=== PATIENT | female | born 1935 | race Two or more races ===

== ENCOUNTER 2020-12-11 09:59 | Inpatient (IN) | payer OTHER ==
[~2020-12-11] VITALS: Ht 162.6 cm; Wt 42.8 kg
[2020-12-11 10:46] LABS: Basophils # (auto) 0.1 10 ^3/uL (0-0.2); Eosinophils # (auto) 0.2 10 ^3/uL (0-0.8); Eosinophils % (auto) 4.1 % (0.0-7.0); Hematocrit 36.5 % (36.0-46.0); Hemoglobin 12.5 g/dL (12.2-16.2); Lymphocytes # (auto) 1.3 10 ^3/uL (0.4-5.4); Lymphocytes % (auto) 27.3 % (10.0-50.0); Mean Corpuscular Hemoglobin 30.6 pg (28.0-32.0); Mean Corpuscular Hgb Conc. 34.2 g/dL (32.0-36.0); Mean Corpuscular Volume 89.5 fL (80.0-100.0); Monocytes # (auto) 0.3 10 ^3/uL (0-1.3); Monocytes % (auto) 5.5 % (0.0-12.0); Neutrophils % (auto) 62.1 % (37.0-80.0); Nucleated Red Blood Cells % 0.1 %; Red Blood Cells 4.08 10^6/uL (4.0-5.20); Red Cell Distribution Width 16.3 % (11.8-14.3); White Blood Cell 4.9 10^3/uL (4.4-10.8)
[2020-12-11] MEDS ORDERED: ONDANSETRON HCL 4 MG/2 ML VIAL IV ONE (11:00)
[2020-12-11] MEDS ORDERED: MORPHINE SULFATE 4 MG/ML SYR/VIAL IV ONE (11:00)
[2020-12-11 11:10] LABS: INR 1.17 (0.9-1.15); Partial Thromboplastin Time 26.3 sec (23.0-31.2)
[2020-12-11 11:12] LABS: Albumin 3.2 g/dL (3.4-5.0); Anion Gap 8 (5-15); Blood Urea Nitrogen 14 mg/dL (7-18); Calcium 8.6 mg/dL (8.5-10.1); Carbon Dioxide 25 mmol/L (21-32); Chloride 107 mmol/L (98-107); Glucose 119 mg/dL (74-106); Potassium 3.6 mmol/L (3.5-5.1); Sodium 140 mmol/L (136-145)
[2020-12-11 11:15] LABS: BUN/Creatinine Ratio 93.3; GFR African American 602 mL/min
[2020-12-11 11:16] LABS: Alanine Aminotransferase 30 U/L (13-56); Alkaline Phosphatase 78 U/L (45-117); Aspartate Aminotransferase 40 U/L (15-37); Bilirubin, Total 0.6 mg/dL (0.2-1.0); GFR Non-African American 498 mL/min; Total Protein 6.8 g/dL (6.4-8.2)
[2020-12-11 12:11] LABS: Urine Bacteria NONE SEEN /hpf (None Seen); Urine Blood Negative /uL (Negative); Urine Hyaline Cast FEW /lpf (0 - 2); Urine Mucus FEW (None Seen); Urine Specific Gravity 1.011 (1.001-1.035); Urine WBC 1 /hpf (0 - 5)
[2020-12-11] MEDS ORDERED: ACETAMINOPHEN 500 MG TAB PO PRN (12:30)
[2020-12-11] MEDS ORDERED: HYDROcodone-ACET 5/325MG TAB PO PRN (12:30)
[2020-12-11] MEDS ORDERED: ONDANSETRON HCL 4 MG/2 ML VIAL IV PRN (12:30)
[2020-12-11] MEDS ORDERED: MORPHINE SULFATE INJECTION 2 MG/ML SYRG IV PRN ×2 (12:30)
[2020-12-11] MEDS ORDERED: NITROGLYCERIN 0.4 MG SL TAB SL PRN (12:30)
[2020-12-11] MEDS ORDERED: DOCUSATE SOD 100 MG CAP PO PRN (12:30)
[2020-12-11] MEDS ORDERED: MORPHINE SULFATE INJECTION 2 MG/ML SYRG IV ONE (15:45)
[2020-12-11] MEDS: ONDANSETRON HCL 4 MG/2 ML VIAL IV PRN (19:56)
[2020-12-11 21:35] VITALS: BP 156/97
[2020-12-12] VITALS (13 sets, daily range): BP systolic 107–152; BP diastolic 50–80
[2020-12-12] MEDS: MORPHINE SULFATE INJECTION 2 MG/ML SYRG IV PRN ×2 (05:21→09:24)
[2020-12-12] MEDS ORDERED: VANCOMYCIN HCL 1000 MG VL ONE (09:50)
[2020-12-12] MEDS ORDERED: TRANEXAMIC ACID 20 ML ONE (09:51)
[2020-12-12] MEDS ORDERED: EPINEPHrine HCL 1 MG/1 ML AMP ONE (09:52)
[2020-12-12] MEDS ORDERED: FAMOTIDINE 20 MG TAB PO SCH (10:00)
[2020-12-12] MEDS ORDERED: MORPHINE SULF PF 2 MG/2 ML SYRG ONE (10:29)
[2020-12-12] MEDS ORDERED: CLINDAMYCIN 600MG IV 50 ML IV ONE (10:57)
[2020-12-12] MEDS ORDERED: PHENYLEPHRINE HCL 10 MG/ML VL IV ONE (11:23)
[2020-12-12] MEDS ORDERED: fentaNYL CITRATE 100 MCG/2 ML VL ONE (11:32)
[2020-12-12] MEDS ORDERED: MIDAZOLAM HCL 2MG/2ML 2ml VIAL (1mg/ml) ONE (11:36)
[2020-12-12] MEDS ORDERED: ONDANSETRON HCL 4 MG/2 ML VIAL ONE ×2 (13:18→14:24)
[2020-12-12] MEDS ORDERED: LIDOCAINE 2% (LOCAL ANESTH.) PF 5ml SDV ONE (13:18)
[2020-12-12] MEDS ORDERED: PROPOFOL 10 MG/ML 20 ML IV ONE (13:41)
[2020-12-12] MEDS ORDERED: HYDROcodone-ACET 5/325MG TAB PO PRN (13:45)
[2020-12-12] MEDS ORDERED: ONDANSETRON HCL 4 MG/2 ML VIAL IV PRN (13:45)
[2020-12-12] MEDS ORDERED: HYDROmorphone HCL 2 MG/ML VL IV PRN (13:45)
[2020-12-12] MEDS ORDERED: NALBUPHINE HCL 10 MG/1ml INJECTION SUBCUT ONE (13:45)
[2020-12-12] MEDS ORDERED: NALOXONE HCL 0.4 MG/ML VIAL IV PRN (13:45)
[2020-12-12] MEDS ORDERED: diphenhdrAMINE HCL 50 MG/1 ML VL IV PRN (13:45)
[2020-12-12] MEDS ORDERED: DexAMETHasone SOD PHOS 10MG/1ML VIAL INJ IV PRN (13:45)
[2020-12-12] MEDS: CLINDAMYCIN 600MG IV 50 ML IV SCH ×2 (17:16→21:40)
[2020-12-12] MEDS: LACTATED RINGER'S 1,000 ML IV SCH (17:17)
[2020-12-12] MEDS: METOPROLOL TARTRATE 25 MG TAB PO SCH (21:41)
[2020-12-13] VITALS (18 sets, daily range): BP systolic 93–142; BP diastolic 44–80
[2020-12-13] MEDS: HYDROcodone-ACET 5/325MG TAB PO PRN ×4 (00:48→23:39)
[2020-12-13 06:03] LABS: Basophils # (auto) 0 10 ^3/uL (0-0.2); Basophils % (auto) 0.3 % (0.0-2.0); Eosinophils # (auto) 0 10 ^3/uL (0-0.8); Eosinophils % (auto) 0.2 % (0.0-7.0); Hematocrit 27.6 % (36.0-46.0); Hemoglobin 9.6 g/dL (12.2-16.2); Lymphocytes # (auto) 1.1 10 ^3/uL (0.4-5.4); Lymphocytes % (auto) 13.8 % (10.0-50.0); Mean Corpuscular Hemoglobin 31.8 pg (28.0-32.0); Mean Corpuscular Hgb Conc. 34.8 g/dL (32.0-36.0); Mean Corpuscular Volume 91.6 fL (80.0-100.0); Monocytes # (auto) 0.6 10 ^3/uL (0-1.3); Monocytes % (auto) 7.5 % (0.0-12.0); Neutrophils # (auto) 6.5 10 ^3/uL (1.6-8.6); Neutrophils % (auto) 78.2 % (37.0-80.0); Nucleated Red Blood Cells % 0.1 %; Red Blood Cells 3.01 10^6/uL (4.0-5.20); Red Cell Distribution Width 16.5 % (11.8-14.3); White Blood Cell 8.3 10^3/uL (4.4-10.8)
[2020-12-13 06:26] LABS: BUN/Creatinine Ratio 133.3; Calcium 8.2 mg/dL (8.5-10.1); Potassium 3.9 mmol/L (3.5-5.1)
[2020-12-13] MEDS: APIXABAN 2.5 MG TAB PO SCH ×2 (09:10→22:24)
[2020-12-13] MEDS: FAMOTIDINE 20 MG TAB PO SCH (09:10)
[2020-12-13] MEDS: LACTATED RINGER'S 1,000 ML IV SCH ×3 (09:45→21:19)
[2020-12-13] MEDS ORDERED: ENOXAPARIN SOD 30 MG/0.3 ML SYRINGE SC SCH (10:00)
[2020-12-13] MEDS: METOPROLOL TARTRATE 25 MG TAB PO SCH ×2 (10:00→22:24)
[2020-12-13] MEDS: ONDANSETRON HCL 4 MG/2 ML VIAL IV PRN (10:56)
[2020-12-13] MEDS: DOCUSATE SOD 100 MG CAP PO SCH ×2 (15:26→22:00)
[2020-12-14] VITALS (7 sets, daily range): BP systolic 110–138; BP diastolic 37–70
[2020-12-14 05:55] LABS: Basophils # (auto) 0 10 ^3/uL (0-0.2); Basophils % (auto) 0.4 % (0.0-2.0); Eosinophils # (auto) 0.1 10 ^3/uL (0-0.8); Eosinophils % (auto) 0.7 % (0.0-7.0); Hematocrit 24.9 % (36.0-46.0); Hemoglobin 8.8 g/dL (12.2-16.2); Lymphocytes % (auto) 13.4 % (10.0-50.0); Mean Corpuscular Hemoglobin 31.7 pg (28.0-32.0); Mean Corpuscular Hgb Conc. 35.5 g/dL (32.0-36.0); Mean Corpuscular Volume 89.3 fL (80.0-100.0); Monocytes # (auto) 0.5 10 ^3/uL (0-1.3); Monocytes % (auto) 6.5 % (0.0-12.0); Neutrophils # (auto) 5.7 10 ^3/uL (1.6-8.6); Red Blood Cells 2.79 10^6/uL (4.0-5.20); White Blood Cell 7.3 10^3/uL (4.4-10.8)
[2020-12-14 06:13] LABS: BUN/Creatinine Ratio 126.3; Calcium 8.7 mg/dL (8.5-10.1); Potassium 4.3 mmol/L (3.5-5.1)
[2020-12-14] MEDS: FAMOTIDINE 20 MG TAB PO SCH (09:05)
[2020-12-14] MEDS: APIXABAN 2.5 MG TAB PO SCH ×2 (09:05→21:57)
[2020-12-14] MEDS: DOCUSATE SOD 100 MG CAP PO SCH ×2 (09:05→22:00)
[2020-12-14] MEDS: HYDROcodone-ACET 5/325MG TAB PO PRN ×3 (09:05→19:44)
[2020-12-14] MEDS: METOPROLOL TARTRATE 25 MG TAB PO SCH ×2 (09:07→22:01)
[2020-12-14] MEDS ORDERED: LACTULOSE 20Gm/30ML SOLN PO ONE (09:30)
[2020-12-14] MEDS ORDERED: LACTULOSE 20Gm/30ML SOLN PO PRN (09:30)
[2020-12-15 05:14] VITALS: BP 125/70
[2020-12-15 05:35] LABS: Basophils # (auto) 0 10 ^3/uL (0-0.2); Basophils % (auto) 0.3 % (0.0-2.0); Eosinophils # (auto) 0.2 10 ^3/uL (0-0.8); Eosinophils % (auto) 2.7 % (0.0-7.0); Hematocrit 27.7 % (36.0-46.0); Hemoglobin 9.9 g/dL (12.2-16.2); Lymphocytes # (auto) 1.5 10 ^3/uL (0.4-5.4); Lymphocytes % (auto) 19.7 % (10.0-50.0); Mean Corpuscular Hemoglobin 31.7 pg (28.0-32.0); Mean Corpuscular Hgb Conc. 35.7 g/dL (32.0-36.0); Mean Corpuscular Volume 88.7 fL (80.0-100.0); Monocytes # (auto) 0.3 10 ^3/uL (0-1.3); Monocytes % (auto) 4.3 % (0.0-12.0); Neutrophils # (auto) 5.4 10 ^3/uL (1.6-8.6); Nucleated Red Blood Cells % 0.1 %; Red Blood Cells 3.12 10^6/uL (4.0-5.20); Red Cell Distribution Width 16.2 % (11.8-14.3); White Blood Cell 7.4 10^3/uL (4.4-10.8)
[2020-12-15 05:52] LABS: Calcium 8.7 mg/dL (8.5-10.1); Potassium 3.7 mmol/L (3.5-5.1)
[2020-12-15 05:55] LABS: BUN/Creatinine Ratio 122.2
[2020-12-15 08:00] VITALS: BP 149/75
[2020-12-15] MEDS ORDERED: LACTULOSE 20Gm/30ML SOLN PO PRN (09:00)
[2020-12-15] MEDS: APIXABAN 2.5 MG TAB PO SCH (09:24)
[2020-12-15] MEDS: DOCUSATE SOD 100 MG CAP PO SCH (09:24)
[2020-12-15] MEDS: METOPROLOL TARTRATE 25 MG TAB PO SCH (09:24)
[2020-12-15] MEDS: HYDROcodone-ACET 5/325MG TAB PO PRN (09:25)
[2020-12-15] MEDS: FAMOTIDINE 20 MG TAB PO SCH (09:25)
[2020-12-15 13:03] VITALS: BP 134/61
[2020-12-15 14:59] VITALS: BP 129/75
[2020-12-15 16:45] VITALS: BP 131/54
== END 2020-12-15 16:45 | DRG 522 ==
LOC: EDBD 09:59 → ER 09:59 → TELE 12:22 → TELE-WESTW 21:34
PROVIDERS: ADMIT Nurse Practitioner Acute Care; ATTEND Internal Medicine Geriatric Medicine
PROC: 0QS706Z Reposition Left Upper Femur with Intramedullary Internal Fixation Device, Open Approach (ICD-10-PCS; 2020-12-12)
PROC: 0SRS0J9 Replacement of Left Hip Joint, Femoral Surface with Synthetic Substitute, Cemented, Open Approach (ICD-10-PCS; principal; 2020-12-12 11:33)
DX: S72.145A Nondisplaced intertrochanteric fracture of left femur, initial encounter for closed fracture (principal); R64 Cachexia; Q21.1 Atrial septal defect; Z68.1 Body mass index [BMI] 19.9 or less, adult; S72.002A Fracture of unspecified part of neck of left femur, initial encounter for closed fracture; W01.0XXA Fall on same level from slipping, tripping and stumbling without subsequent striking against object, initial encounter; Y93.89 Activity, other specified; Y92.89 Other specified places as the place of occurrence of the external cause; Y99.8 Other external cause status; Y92.9 Unspecified place or not applicable; I48.0 Paroxysmal atrial fibrillation; I10 Essential (primary) hypertension; Z20.822 Contact with and (suspected) exposure to COVID-19; K59.00 Constipation, unspecified; Z82.49 Family history of ischemic heart disease and other diseases of the circulatory system; Z83.3 Family history of diabetes mellitus; Z85.068 Personal history of other malignant neoplasm of small intestine; Z85.07 Personal history of malignant neoplasm of pancreas; R29.6 Repeated falls; Z88.3 Allergy status to other anti-infective agents; Z88.0 Allergy status to penicillin
CPT/HCPCS: 36415; 51702; 70450; 71045; 72170; 72192; 80048; 80053; 81001; 83880; 84443; 84484; 85025; 85610; 85730; 86850; 86900; 86901; 87426; 93005; 93306; 96374; 96375; 96376; 97110; 97530; G0378; J0171; J2001; J2250; J2405; J2704; J3490

== ENCOUNTER 2021-09-25 17:07 | Inpatient (IN) | payer OTHER ==
[~2021-09-25] VITALS: Ht 154.9 cm; Wt 54.0 kg
[2021-09-25 18:22] LABS: Basophils # (auto) 0.1 10 ^3/uL (0-0.2); Basophils % (auto) 1.2 % (0.0-2.0); Eosinophils # (auto) 0.1 10 ^3/uL (0-0.8); Eosinophils % (auto) 0.8 % (0.0-7.0); Hematocrit 39.4 % (36.0-46.0); Hemoglobin 13.3 g/dL (12.2-16.2); Lymphocytes # (auto) 0.5 10 ^3/uL (0.4-5.4); Lymphocytes % (auto) 5.7 % (10.0-50.0); Mean Corpuscular Hemoglobin 30.9 pg (28.0-32.0); Mean Corpuscular Hgb Conc. 33.8 g/dL (32.0-36.0); Mean Corpuscular Volume 91.4 fL (80.0-100.0); Monocytes # (auto) 0.3 10 ^3/uL (0-1.3); Monocytes % (auto) 4.2 % (0.0-12.0); Neutrophils # (auto) 7.2 10 ^3/uL (1.6-8.6); Neutrophils % (auto) 88.1 % (37.0-80.0); Nucleated Red Blood Cells % 0.1 %; Red Blood Cells 4.31 10^6/uL (4.0-5.20); Red Cell Distribution Width 15.3 % (11.8-14.3); White Blood Cell 8.2 10^3/uL (4.4-10.8)
[2021-09-25] MEDS ORDERED: SODIUM CHLORIDE 0.9% 500 ML IV ONE (18:30)
[2021-09-25] MEDS ORDERED: dilTIAZem 25 MG/5 ML VIAL IV ONE (18:30)
[2021-09-25] MEDS ORDERED: ACETAMINOPHEN 650 MG RECT SUPP PR ONE (18:30)
[2021-09-25 18:38] LABS: Albumin 2.9 g/dL (3.4-5.0); Calcium 8.7 mg/dL (8.5-10.1); Magnesium 2.2 mg/dL (1.6-2.6); Potassium 3.8 mmol/L (3.5-5.1)
[2021-09-25 18:43] LABS: Total Protein 6.7 g/dL (6.4-8.2)
[2021-09-25] MEDS ORDERED: VANCOMYCIN 1GM/250ML 250 ML IV ONE (18:45)
[2021-09-25 18:49] LABS: Urine Bacteria NONE SEEN /hpf (None Seen); Urine Blood 2+ /uL (Negative); Urine Mucus FEW (None Seen); Urine Specific Gravity 1.028 (1.001-1.035); Urine WBC 15 /hpf (0 - 5)
[2021-09-25] MEDS ORDERED: MORPHINE SULFATE INJECTION 2 MG/ML SYRG IV PRN (19:15)
[2021-09-25] MEDS ORDERED: ASPirin 325 MG TAB PO ONE (19:15)
[2021-09-25] MEDS ORDERED: ENOXAPARIN SOD 40 MG/0.4 ML SYRINGE SC ONE (19:15)
[2021-09-25] MEDS ORDERED: NITROGLYCERIN 0.4 MG SL TAB SL PRN (19:15)
[2021-09-25] MEDS ORDERED: levoFLOXacin 250 MG TAB PO ONE (19:15)
[2021-09-25 19:26] LABS: INR 1.07 (0.9-1.15); Partial Thromboplastin Time 27.1 sec (23.6-33.0)
[2021-09-25] MEDS ORDERED: AZITHROMYCIN 500MG/ 250ML 250 ML IV ONE (19:30)
[2021-09-25] MEDS ORDERED: hydrALAZINE HCL 20 MG/ML VL IV PRN (19:30)
[2021-09-25] MEDS ORDERED: PANTOPRAZOLE 40 MG/10 ML VIAL INJ IV ONE (19:30)
[2021-09-25] MEDS ORDERED: SODIUM CHLORIDE 0.9% 1,000 ML IV ONE (19:30)
[2021-09-25] MEDS ORDERED: HYDROcodone-ACET 5/325MG TAB PO ONE (19:30)
[2021-09-25] MEDS ORDERED: METOPROLOL TARTRATE 1MG/1ML-5ML VIAL IV PRN (19:30)
[2021-09-25] MEDS ORDERED: ACETAMINOPHEN 325 MG TAB PO PRN (19:30)
[2021-09-25] MEDS ORDERED: LORazepam 0.5 MG TAB PO PRN (19:30)
[2021-09-25] MEDS ORDERED: cefTRIAXone 1GM/50ML D5W 50 ML IV ONE (19:30)
[2021-09-25] MEDS ORDERED: DOCUSATE SOD 100 MG CAP PO PRN (19:30)
[2021-09-25] MEDS ORDERED: METOPROLOL SUCCINATE XL 50 MG TAB PO ONE (19:30)
[2021-09-25] MEDS ORDERED: FOLIC ACID 1 MG TAB PO ONE (19:30)
[2021-09-25] MEDS ORDERED: IPRATROPIUM BROM 0.5 MG/2.5ML INH SOL NEB ONE (19:30)
[2021-09-25] MEDS ORDERED: SUCRALFATE 1 GM/10 ML ORAL SUSP PO ONE (20:00)
[2021-09-25 21:15] VITALS: BP 63/34
[2021-09-25] MEDS: ONDANSETRON HCL 4 MG/2 ML VIAL IV PRN ×2 (21:25→23:55)
[2021-09-25] MEDS ORDERED: ALBUMIN 25% 50 ML IV ONE (21:36)
[2021-09-25] MEDS: SODIUM CHLORIDE 0.9% 1,000 ML IV SCH (22:00)
[2021-09-25] MEDS ORDERED: SUCRALFATE 1 GM/10 ML ORAL SUSP PO SCH (22:00)
[2021-09-25] MEDS ORDERED: IPRATROPIUM BROM 0.5 MG/2.5ML INH SOL NEB SCH (22:00)
[2021-09-25] MEDS: NOREPINEPHRINE 8 MG/250ML KIT 250 ML IV SCH (22:00)
[2021-09-25] MEDS ORDERED: NOREPINEPHRINE 8 MG/250ML KIT 250 ML IV ONE (22:01)
[2021-09-25 22:15] VITALS: BP 77/40
[2021-09-25 22:30] VITALS: BP 89/57
[2021-09-25 22:45] VITALS: BP 92/53
[2021-09-25] MEDS ORDERED: APIX5TAB PO (22:55)
[2021-09-25 23:15] VITALS: BP 75/39
[2021-09-25] MEDS: ATORVASTATIN 20 MG TAB PO SCH (23:41)
[2021-09-25 23:45] VITALS: BP 106/56
[2021-09-26] VITALS (78 sets, daily range): BP systolic 76–138; BP diastolic 43–89
[2021-09-26 04:46] LABS: Basophils # (auto) 0 10 ^3/uL (0-0.2); Basophils % (auto) 0.5 % (0.0-2.0); Eosinophils # (auto) 0 10 ^3/uL (0-0.8); Eosinophils % (auto) 0.1 % (0.0-7.0); Hematocrit 37.7 % (36.0-46.0); Hemoglobin 12.8 g/dL (12.2-16.2); Lymphocytes % (auto) 9.5 % (10.0-50.0); Mean Corpuscular Hemoglobin 31.2 pg (28.0-32.0); Mean Corpuscular Volume 91.8 fL (80.0-100.0); Monocytes # (auto) 0.6 10 ^3/uL (0-1.3); Monocytes % (auto) 5.5 % (0.0-12.0); Neutrophils # (auto) 9.1 10 ^3/uL (1.6-8.6); Neutrophils % (auto) 84.4 % (37.0-80.0); Red Blood Cells 4.11 10^6/uL (4.0-5.20); Red Cell Distribution Width 15.3 % (11.8-14.3); White Blood Cell 10.8 10^3/uL (4.4-10.8)
[2021-09-26 04:57] LABS: Potassium 3.5 mmol/L (3.5-5.1)
[2021-09-26 05:02] LABS: Thyroid Stimulating Hormone 2.45 uIU/mL (0.358-3.74)
[2021-09-26 05:06] LABS: INR 1.17 (0.9-1.15); Partial Thromboplastin Time 34.9 sec (23.6-33.0)
[2021-09-26 05:07] LABS: Albumin 2.6 g/dL (3.4-5.0); BUN/Creatinine Ratio 75.9; Bilirubin, Total 0.6 mg/dL (0.2-1.0); CRP High Sensitivity 4.68 mg/dL (< 0.3); Calcium 7.5 mg/dL (8.5-10.1); Magnesium 1.9 mg/dL (1.6-2.6); Phosphorus 2.7 mg/dL (2.5-4.90); Total Protein 5.7 g/dL (6.4-8.2); Uric Acid 3.6 mg/dL (2.6-6.0)
[2021-09-26] MEDS: NOREPINEPHRINE 8 MG/250ML KIT 250 ML IV SCH (06:52)
[2021-09-26] MEDS ORDERED: METOPROLOL SUCCINATE XL 50 MG TAB PO SCH (10:00)
[2021-09-26] MEDS ORDERED: APIXABAN 2.5 MG TAB PO SCH (10:00)
[2021-09-26] MEDS: CHOLECALCIFEROL (VITD3) 2,000 UNIT CAP/TAB PO SCH (10:00)
[2021-09-26] MEDS ORDERED: ASPirin 81 mg TAB PO SCH (10:00)
[2021-09-26] MEDS: THIAMINE HCL 100 MG TAB PO SCH (10:00)
[2021-09-26] MEDS: CYANOCOBALAMIN 500 MCG TAB PO SCH (10:00)
[2021-09-26] MEDS: FOLIC ACID 1 MG TAB PO SCH (10:00)
[2021-09-26] MEDS: cefTRIAXone 1GM/50ML D5W 50 ML IV SCH (10:02)
[2021-09-26] MEDS: ONDANSETRON HCL 4 MG/2 ML VIAL IV PRN (10:02)
[2021-09-26] MEDS: MORPHINE SULFATE INJECTION 2 MG/ML SYRG IV PRN (10:04)
[2021-09-26] MEDS: PANTOPRAZOLE 40 MG/10 ML VIAL INJ IV SCH (11:16)
[2021-09-26] MEDS: AZITHROMYCIN 500MG/ 250ML 250 ML IV SCH (11:17)
[2021-09-26] MEDS: SODIUM CHLORIDE 0.9% 1,000 ML IV SCH (11:35)
[2021-09-26] MEDS ORDERED: HEPARIN SODIUM (PORCINE) 5000 UNITS/ML 1ML VIAL IV ONE (16:00)
[2021-09-26] MEDS ORDERED: HEPARIN DRIP/D5W 100UNITS/ML 250 ML IV SCH (16:00)
[2021-09-26] MEDS ORDERED: DIGOXIN (250MCG/ML) 2 ML AMPULE IV ONE (16:30)
[2021-09-26 19:13] LABS: INR 1.21 (0.9-1.15); Partial Thromboplastin Time 33.2 sec (23.6-33.0)
[2021-09-26] MEDS: ATORVASTATIN 20 MG TAB PO SCH (21:31)
[2021-09-27] VITALS (62 sets, daily range): BP systolic 84–139; BP diastolic 48–89
[2021-09-27] MEDS: MORPHINE SULFATE INJECTION 2 MG/ML SYRG IV PRN ×2 (01:52→11:23)
[2021-09-27] MEDS: ONDANSETRON HCL 4 MG/2 ML VIAL IV PRN ×2 (01:52→11:22)
[2021-09-27] MEDS: SODIUM CHLORIDE 0.9% 1,000 ML IV SCH ×3 (03:26→22:00)
[2021-09-27 04:45] LABS: Basophils # (auto) 0 10 ^3/uL (0-0.2); Basophils % (auto) 0.6 % (0.0-2.0); Eosinophils # (auto) 0 10 ^3/uL (0-0.8); Eosinophils % (auto) 0.6 % (0.0-7.0); Hematocrit 35.2 % (36.0-46.0); Lymphocytes # (auto) 1.7 10 ^3/uL (0.4-5.4); Lymphocytes % (auto) 22.7 % (10.0-50.0); Mean Corpuscular Hemoglobin 31.1 pg (28.0-32.0); Mean Corpuscular Hgb Conc. 34.1 g/dL (32.0-36.0); Mean Corpuscular Volume 91.2 fL (80.0-100.0); Monocytes # (auto) 0.4 10 ^3/uL (0-1.3); Monocytes % (auto) 5.1 % (0.0-12.0); Neutrophils # (auto) 5.4 10 ^3/uL (1.6-8.6); Nucleated Red Blood Cells % 0.1 %; Red Blood Cells 3.87 10^6/uL (4.0-5.20); Red Cell Distribution Width 15.4 % (11.8-14.3); White Blood Cell 7.5 10^3/uL (4.4-10.8)
[2021-09-27 04:56] LABS: Potassium 3.4 mmol/L (3.5-5.1)
[2021-09-27 05:05] LABS: Albumin 2.4 g/dL (3.4-5.0); BUN/Creatinine Ratio 104.5; Bilirubin, Total 0.5 mg/dL (0.2-1.0); Calcium 8.3 mg/dL (8.5-10.1); Magnesium 1.8 mg/dL (1.6-2.6); Phosphorus 2.8 mg/dL (2.5-4.90); Total Protein 5.4 g/dL (6.4-8.2)
[2021-09-27 05:31] LABS: INR 1.16 (0.9-1.15); Partial Thromboplastin Time 33.2 sec (23.6-33.0)
[2021-09-27] MEDS ORDERED: HEPARIN SODIUM (PORCINE) 5000 UNITS/ML 1ML VIAL ONE (05:59)
[2021-09-27] MEDS ORDERED: Ensure HIGH Protein Chocolate 8oz Bottle PO SCH (08:00)
[2021-09-27] MEDS: cefTRIAXone 1GM/50ML D5W 50 ML IV SCH (09:13)
[2021-09-27] MEDS: PANTOPRAZOLE 40 MG/10 ML VIAL INJ IV SCH (09:48)
[2021-09-27] MEDS: AZITHROMYCIN 500MG/ 250ML 250 ML IV SCH (09:49)
[2021-09-27] MEDS: THIAMINE HCL 100 MG TAB PO SCH (10:00)
[2021-09-27] MEDS: FOLIC ACID 1 MG TAB PO SCH (10:00)
[2021-09-27] MEDS: CHOLECALCIFEROL (VITD3) 2,000 UNIT CAP/TAB PO SCH (10:00)
[2021-09-27] MEDS: CYANOCOBALAMIN 500 MCG TAB PO SCH (10:00)
[2021-09-27] MEDS ORDERED: AMIODARONE HCL 200 MG TAB PO ONE (11:30)
[2021-09-27] MEDS: APIXABAN 2.5 MG TAB PO SCH ×2 (11:43→21:55)
[2021-09-27] MEDS: AMIODARONE HCL 200 MG TAB PO SCH (21:55)
[2021-09-27] MEDS: CIPROFLOXACIN 400MG/200ML 200 ML IV SCH (21:55)
[2021-09-27] MEDS: ATORVASTATIN 20 MG TAB PO SCH (21:56)
[2021-09-28] VITALS (10 sets, daily range): BP systolic 98–150; BP diastolic 51–90
[2021-09-28] MEDS: HYDROcodone-ACET 5/325MG TAB PO PRN ×2 (02:28→21:27)
[2021-09-28] MEDS: cefTRIAXone 1GM/50ML D5W 50 ML IV SCH (08:56)
[2021-09-28] MEDS: PANTOPRAZOLE 40 MG/10 ML VIAL INJ IV SCH (09:36)
[2021-09-28] MEDS: AMIODARONE HCL 200 MG TAB PO SCH ×2 (09:36→21:49)
[2021-09-28] MEDS: CIPROFLOXACIN 400MG/200ML 200 ML IV SCH ×2 (09:36→21:49)
[2021-09-28] MEDS: APIXABAN 2.5 MG TAB PO SCH ×2 (09:36→21:49)
[2021-09-28] MEDS: FOLIC ACID 1 MG TAB PO SCH (09:36)
[2021-09-28] MEDS: SODIUM CHLORIDE 0.9% 1,000 ML IV SCH (14:10)
[2021-09-28] MEDS: ATORVASTATIN 20 MG TAB PO SCH (21:49)
[2021-09-29 05:00] VITALS: BP 127/73
[2021-09-29 06:25] LABS: Basophils # (auto) 0 10 ^3/uL (0-0.2); Basophils % (auto) 0.5 % (0.0-2.0); Eosinophils # (auto) 0.1 10 ^3/uL (0-0.8); Eosinophils % (auto) 1.1 % (0.0-7.0); Lymphocytes # (auto) 0.9 10 ^3/uL (0.4-5.4); Lymphocytes % (auto) 12.3 % (10.0-50.0); Mean Corpuscular Hemoglobin 31.3 pg (28.0-32.0); Mean Corpuscular Hgb Conc. 34.2 g/dL (32.0-36.0); Mean Corpuscular Volume 91.6 fL (80.0-100.0); Monocytes # (auto) 0.3 10 ^3/uL (0-1.3); Monocytes % (auto) 4.6 % (0.0-12.0); Neutrophils % (auto) 81.5 % (37.0-80.0); Nucleated Red Blood Cells % 0.1 %; Red Blood Cells 3.82 10^6/uL (4.0-5.20); Red Cell Distribution Width 15.4 % (11.8-14.3); White Blood Cell 7.3 10^3/uL (4.4-10.8)
[2021-09-29 06:36] LABS: Potassium 3.7 mmol/L (3.5-5.1)
[2021-09-29] MEDS: SODIUM CHLORIDE 0.9% 1,000 ML IV SCH ×2 (06:53→23:30)
[2021-09-29 06:54] LABS: Albumin 2.4 g/dL (3.4-5.0); Bilirubin, Total 0.3 mg/dL (0.2-1.0); Calcium 8.8 mg/dL (8.5-10.1); Magnesium 1.9 mg/dL (1.6-2.6); Phosphorus 2.4 mg/dL (2.5-4.90); Total Protein 5.4 g/dL (6.4-8.2)
[2021-09-29 08:00] VITALS: BP 142/77
[2021-09-29] MEDS: APIXABAN 2.5 MG TAB PO SCH ×2 (11:25→22:33)
[2021-09-29] MEDS: FOLIC ACID 1 MG TAB PO SCH (11:25)
[2021-09-29] MEDS: AMIODARONE HCL 200 MG TAB PO SCH ×2 (11:26→22:33)
[2021-09-29] MEDS: HYDROcodone-ACET 5/325MG TAB PO PRN (11:30)
[2021-09-29 12:00] VITALS: BP 131/74
[2021-09-29] MEDS: cefTRIAXone 1GM/50ML D5W 50 ML IV SCH (12:00)
[2021-09-29] MEDS: LACTULOSE 20Gm/30ML SOLN PO PRN (12:30)
[2021-09-29] MEDS: PANTOPRAZOLE 40 MG/10 ML VIAL INJ IV SCH (14:43)
[2021-09-29] MEDS: CIPROFLOXACIN 400MG/200ML 200 ML IV SCH ×2 (14:45→22:33)
[2021-09-29 16:00] VITALS: BP 103/61
[2021-09-29 22:00] VITALS: BP 135/79
[2021-09-29] MEDS: ATORVASTATIN 20 MG TAB PO SCH (22:33)
[2021-09-30] MEDS: MORPHINE SULFATE INJECTION 2 MG/ML SYRG IV PRN (02:19)
[2021-09-30 05:00] VITALS: BP 143/86
[2021-09-30 08:00] VITALS: BP 151/81
[2021-09-30] MEDS: CIPROFLOXACIN 400MG/200ML 200 ML IV SCH ×2 (09:33→22:32)
[2021-09-30] MEDS: AMIODARONE HCL 200 MG TAB PO SCH ×2 (09:34→22:33)
[2021-09-30] MEDS: APIXABAN 2.5 MG TAB PO SCH ×2 (09:34→22:33)
[2021-09-30] MEDS: FOLIC ACID 1 MG TAB PO SCH (09:34)
[2021-09-30] MEDS: HYDROcodone-ACET 5/325MG TAB PO PRN (09:34)
[2021-09-30] MEDS: PANTOPRAZOLE 40 MG/10 ML VIAL INJ IV SCH (09:35)
[2021-09-30] MEDS: ONDANSETRON HCL 4 MG/2 ML VIAL IV PRN (12:16)
[2021-09-30 13:00] VITALS: BP 134/69
[2021-09-30] MEDS: SODIUM CHLORIDE 0.9% 1,000 ML IV SCH (16:10)
[2021-09-30 17:37] VITALS: BP 122/68
[2021-09-30 22:00] VITALS: BP 153/80
[2021-09-30] MEDS: ATORVASTATIN 20 MG TAB PO SCH (22:33)
[2021-10-01] MEDS: LACTULOSE 20Gm/30ML SOLN PO PRN (00:37)
[2021-10-01] MEDS: MORPHINE SULFATE INJECTION 2 MG/ML SYRG IV PRN ×2 (01:25→18:05)
[2021-10-01 05:00] VITALS: BP 145/85
[2021-10-01 06:21] LABS: Basophils # (auto) 0 10 ^3/uL (0-0.2); Basophils % (auto) 0.4 % (0.0-2.0); Eosinophils # (auto) 0.2 10 ^3/uL (0-0.8); Eosinophils % (auto) 2.5 % (0.0-7.0); Hematocrit 35.8 % (36.0-46.0); Hemoglobin 12.4 g/dL (12.2-16.2); Lymphocytes # (auto) 1.2 10 ^3/uL (0.4-5.4); Lymphocytes % (auto) 18.5 % (10.0-50.0); Mean Corpuscular Hemoglobin 31.6 pg (28.0-32.0); Mean Corpuscular Hgb Conc. 34.7 g/dL (32.0-36.0); Mean Corpuscular Volume 91.2 fL (80.0-100.0); Monocytes # (auto) 0.4 10 ^3/uL (0-1.3); Monocytes % (auto) 5.8 % (0.0-12.0); Neutrophils # (auto) 4.7 10 ^3/uL (1.6-8.6); Neutrophils % (auto) 72.8 % (37.0-80.0); Nucleated Red Blood Cells % 0.1 %; Red Blood Cells 3.92 10^6/uL (4.0-5.20); Red Cell Distribution Width 15.4 % (11.8-14.3); White Blood Cell 6.5 10^3/uL (4.4-10.8)
[2021-10-01 06:31] LABS: Potassium 4.2 mmol/L (3.5-5.1)
[2021-10-01 06:48] LABS: Albumin 2.4 g/dL (3.4-5.0); BUN/Creatinine Ratio 23.3; Bilirubin, Total 0.4 mg/dL (0.2-1.0); Calcium 8.5 mg/dL (8.5-10.1); Phosphorus 2.6 mg/dL (2.5-4.90); Total Protein 5.6 g/dL (6.4-8.2)
[2021-10-01 08:00] VITALS: BP 150/79
[2021-10-01 09:00] VITALS: BP 131/88
[2021-10-01] MEDS: CIPROFLOXACIN 400MG/200ML 200 ML IV SCH ×2 (09:07→22:29)
[2021-10-01] MEDS: PANTOPRAZOLE 40 MG/10 ML VIAL INJ IV SCH (09:07)
[2021-10-01] MEDS: FOLIC ACID 1 MG TAB PO SCH (09:07)
[2021-10-01] MEDS: AMIODARONE HCL 200 MG TAB PO SCH ×2 (09:08→22:27)
[2021-10-01] MEDS: APIXABAN 2.5 MG TAB PO SCH ×2 (09:08→22:27)
[2021-10-01 12:56] VITALS: BP 139/81
[2021-10-01] MEDS ORDERED: FUROSEMIDE 40 MG/4 ML VIAL IV ONE (15:45)
[2021-10-01 17:00] VITALS: BP 134/94
[2021-10-01 17:08] LABS: Urine Bacteria NONE SEEN /hpf (None Seen); Urine Blood 3+ /uL (Negative); Urine Budding Yeast MANY /hpf (None Seen); Urine Hyaline Cast MOD /lpf (0 - 2); Urine Mucus FEW (None Seen); Urine Specific Gravity 1.015 (1.001-1.035); Urine WBC 179 /hpf (0 - 5)
[2021-10-01] MEDS: SODIUM CHLORIDE 0.9% 1,000 ML IV SCH (18:10)
[2021-10-01 21:46] VITALS: BP 147/82
[2021-10-01] MEDS: ATORVASTATIN 20 MG TAB PO SCH (22:26)
[2021-10-01] MEDS: CARVEDILOL 3.125 MG TAB PO SCH (22:28)
[2021-10-02] MEDS: ONDANSETRON HCL 4 MG/2 ML VIAL IV PRN (02:04)
[2021-10-02 04:56] VITALS: BP 125/77
[2021-10-02 08:00] VITALS: BP 147/82
[2021-10-02 09:00] VITALS: BP 149/81
[2021-10-02] MEDS: CIPROFLOXACIN 400MG/200ML 200 ML IV SCH (09:23)
[2021-10-02] MEDS: FOLIC ACID 1 MG TAB PO SCH (09:25)
[2021-10-02] MEDS: PANTOPRAZOLE 40 MG/10 ML VIAL INJ IV SCH (09:25)
[2021-10-02] MEDS: AMIODARONE HCL 200 MG TAB PO SCH (09:25)
[2021-10-02] MEDS: APIXABAN 2.5 MG TAB PO SCH (09:26)
[2021-10-02] MEDS: CARVEDILOL 3.125 MG TAB PO SCH (09:26)
[2021-10-02] MEDS ORDERED: FUROSEMIDE 40 MG/4 ML VIAL IV SCH (10:00)
[2021-10-02] MEDS ORDERED: FUROSEMIDE 40 MG/4 ML VIAL IV ONE (12:15)
[2021-10-02] MEDS ORDERED: CAR3125T OR (12:16)
[2021-10-02] MEDS ORDERED: CIP250T PO (12:16)
[2021-10-02] MEDS ORDERED: ATOR10TA PO (12:16)
[2021-10-02] MEDS ORDERED: AMIO200T33 PO (12:16)
[2021-10-02 12:31] VITALS: BP 149/81
[2021-10-02 13:00] VITALS: BP 104/69
[2021-10-02] MEDS ORDERED: Ensure HIGH Protein Chocolate 8oz Bottle PO SCH (18:00)
== END 2021-10-02 14:06 | disposition home or self-care (01) | DRG 871 ==
LOC: ER 17:07 → TELE 19:21 → TELE-CENTR 20:51 → ICU WEST 22:00 → TELE-WESTW 09-28 13:00
PROVIDERS: ADMIT Hospitalist; ATTEND Nurse Practitioner
DX: A41.9 Sepsis, unspecified organism (principal); I21.4 Non-ST elevation (NSTEMI) myocardial infarction; J18.9 Pneumonia, unspecified organism; R65.21 Severe sepsis with septic shock; I50.33 Acute on chronic diastolic (congestive) heart failure; R64 Cachexia; I48.91 Unspecified atrial fibrillation; E78.5 Hyperlipidemia, unspecified; I11.0 Hypertensive heart disease with heart failure; R62.7 Adult failure to thrive; Z96.642 Presence of left artificial hip joint; R54 Age-related physical debility; F01.50 Vascular dementia, unspecified severity, without behavioral disturbance, psychotic disturbance, mood disturbance, and anxiety; F02.80 Dementia in other diseases classified elsewhere, unspecified severity, without behavioral disturbance, psychotic disturbance, mood disturbance, and anxiety; G30.9 Alzheimer's disease, unspecified; I25.10 Atherosclerotic heart disease of native coronary artery without angina pectoris; K44.9 Diaphragmatic hernia without obstruction or gangrene; Z74.01 Bed confinement status; Z83.3 Family history of diabetes mellitus; Z79.01 Long term (current) use of anticoagulants; Z85.028 Personal history of other malignant neoplasm of stomach; Z90.411 Acquired partial absence of pancreas; Z90.49 Acquired absence of other specified parts of digestive tract; Z98.84 Bariatric surgery status
CPT/HCPCS: 36415; 51702; 71045; 74176; 80053; 80061; 81001; 82550; 82728; 83036; 83605; 83615; 83690; 83735; 83880; 84100; 84443; 84484; 84550; 85025; 85379; 85610; 85652; 85730; 86141; 87040; 87081; 87086; 92610; 93005; 93306; 96365; 96367; 96372; 96375; 97163; 99291; C9113; G0378; J0696; J2405